=== PATIENT | female | born 1975 | race African-American/Black ===

== ENCOUNTER 2016-09-09 10:05 | Emergency (ER) | payer OTHER ==
[~2016-09-09] VITALS: Ht 167.6 cm; Wt 68.0 kg
[2016-09-09 10:15] VITALS: BP 137/97
--- NOTE | 2016-09-09 10:36 | PHYS DOC ---
Past Medical History Past Medical History: Hypertension Past Surgical History: Additional Past Surgical Histo: rt hand, rotator cuff repair Alcohol Use: Occasionally Drug Use: Marijuana Adult General Chief Complaint Chief Complaint: UPPER EXTREMITY PAIN HPI HPI Patient is a 41 year old female comes emergency Department today with complaint of ongoing cough for the past 2-3 days with left anterior chest wall pain secondary to coughing as well as left shoulder pain for approximately a day and a half. Patient denies any fevers or chills. She reports no history of heart or lung disease. She is a smoker. Patient is right-hand dominant. She reports having a left rotator cuff surgery more than 5 years ago. She does perform repetitive movements at work, but denies heavy lifting or overhead lifting. Patient states that she went to work today and began feeling worse so she decided to come to the emergency department for evaluation. Review of Systems Review of Systems Constitutional: Denies fever or chills [] Eyes: Denies change in visual acuity, redness, or eye pain [] HENT: Denies nasal congestion or sore throat [] Respiratory: Denies cough or shortness of breath [] Cardiovascular: No additional information not addressed in HPI [] GI: Denies abdominal pain, nausea, vomiting, bloody stools or diarrhea [] : Denies dysuria or hematuria [] Musculoskeletal: Denies back pain or joint pain [] Integument: Denies rash or skin lesions [] Neurologic: Denies headache, focal weakness or sensory changes [] Endocrine: Denies polyuria or polydipsia [] Current Medications Current Medications Current Medications Medications (Trade) Dose Ordered Sig/[facility] Start Time Stop Time Status Last Admin Dose Admin Acetaminophen/ Hydrocodone Bitart (Lortab 5/325) 1 tab 1X ONCE 09/09/16 10:45 09/09/16 10:46 DC 09/09/16 11:03 1 TAB Allergies Allergies Allergies Coded Allergies Type Severity Reaction Last Updated Verified No Known Drug Allergies 09/11/13 No Physical Exam Physical Exam Constitutional: Well developed, well nourished, no acute distress, non-toxic appearance. Patient's physiologic vital signs are normal. She is sitting in a high semi-Fowlers position in no acute distress. HENT: Normocephalic, atraumatic, bilateral external ears normal, oropharynx moist, no oral exudates, nose normal. [] Eyes: PERRLA, EOMI, conjunctiva normal, no discharge. [] Neck: Normal range of motion, no tenderness, supple, no stridor. [] Cardiovascular:Heart rate regular rhythm, no murmur [] Lungs & Thorax: There is no respiratory distress or respiratory fatigue. There is no posturing or sensory muscle use. Lungs are clear to auscultation bilaterally. There is tenderness to palpation along the left costal sternal border without palpable defect, deformity, instability or crepitus. She demonstrates full chest excursion with inspiration. Abdomen: Bowel sounds normal, soft, no tenderness, no masses, no pulsatile masses. [] Skin: Warm, dry, no erythema, no rash. [] Back: No tenderness, no CVA tenderness. [] Extremities: Left shoulder is normal in appearance. Patient essentially has dubon- tenderness to her left shoulder without palpable defect, deformity or spasm. She demonstrates limited range of motion secondary to pain. Left upper extremity is neurovascularly intact, is warm and dry without dystrophic changes. Neurologic: Alert and oriented X 3, normal motor function, normal sensory function, no focal deficits noted. [] Psychologic: Affect normal, judgement normal, mood normal. [] Current Patient Data Vital Signs Vital Signs Date Time Temp Pulse Resp B/P Pulse Ox O2 Delivery O2 Flow Rate FiO2 09/09/16 10:15 98.2 85 18 137/97 99 Room Air 98.2 EKG EKG [] Radiology/Procedures Radiology/Procedures [facility] [address] [place] [address] IMAGING REPORT Signed PATIENT: KATHERINE CALDERÓN ACCOUNT: [id number] : 1975 LOCATION: ER AGE: 41 SEX: F EXAM STATUS: REG ER ORD. PHYSICIAN: SHEA GAMBOA REASON: LEFT chest wall pain and shoulder pain PROCEDURE: SHOULDER 2+V LEFT Indication shoulder pain. Internally and externally rotated views of the left shoulder as well as a Y view were obtained. No acute bony finding is seen. There are moderate glenohumeral degenerative changes. DICTATED and SIGNED BY: RONNIE RUIZ MD DATE: 09/09/16 1146 [facility] [address] [place] [address] IMAGING REPORT Signed PATIENT: KATHERINE CALDERÓN ACCOUNT: [id number] : 1975 LOCATION: ER AGE: 41 SEX: F EXAM STATUS: REG ER ORD. PHYSICIAN: SHEA GAMBOA REASON: LEFT chest wall pain and shoulder pain PROCEDURE: CHEST PA & LATERAL Indication shoulder and chest pain. PA and lateral views of the chest were obtained. Comparison is made to an examination 03/05/2012. The heart, pulmonary vessels and mediastinum appear normal. The lungs are clear. An acute finding in the chest is not apparent. There are some degenerative changes about the left shoulder. IMPRESSION: No acute finding apparent in the chest DICTATED and SIGNED BY: RONNIE RUIZ MD DATE: 09/09/16 0847 Course & Med Decision Making Course & Med Decision Making Pertinent Labs and Imaging studies reviewed. (See chart for details) [] Dragon Disclaimer Dragon Disclaimer This electronic medical record was generated, in whole or in part, using a voice recognition dictation system. Departure Departure Impression: Primary Impression: Costochondritis, acute Additional Impression: Osteoarthritis Disposition: 01 HOME, SELF-CARE Condition: GOOD Referrals: NO PCP (PCP) Patient Instructions: Costochondritis, [id number], Osteoarthritis Additional Instructions: 1. The x-rays of your chest today are normal. The x-rays of your left shoulder show moderate arthritic changes (arthritis). 2. You will need to follow-up with both a primary care doctor and orthopedic doctor. A pamphlet is provided to you for both. 3. Take the medication as prescribed. 4. Review the discharge instructions provided for self-care and reasons to return to the emergency department. Scripts D-Methorphan Hb/Prometh Hcl (Promethazine-Dm Syrup)118 Ml Syrup5 Ml PO PRN Q6HRS COUGH #120 ML Prov:SHEA GAMBOA 09/09/16 Hydrocodone/Apap 5-325 ([place] 5-325 Tablet)1 Each Tablet1 Tab PO PRN Q6HRS PRN PAIN #15 TAB Prov:SHEA GAMBOA 09/09/16 Problem Qualifiers Additional Impression: Osteoarthritis Osteoarthritis location: shoulder Osteoarthritis type: primary Laterality: left Qualified Code: M19.012 - Primary osteoarthritis, left shoulder SHEA GAMBOA September 09, 2016 10:36
[2016-09-09] MEDS ORDERED: HYDROCODONE/APAP 5/325MG TABLET. PO ONE (10:45)
--- NOTE | 2016-09-09 10:49 | RAD ---
Indication shoulder pain. Internally and externally rotated views of the left shoulder as well as a Y view were obtained. No acute bony finding is seen. There are moderate glenohumeral degenerative changes.
--- NOTE | 2016-09-09 10:51 | RAD ---
Indication shoulder and chest pain. PA and lateral views of the chest were obtained. Comparison is made to an examination 03/05/2012. The heart, pulmonary vessels and mediastinum appear normal. The lungs are clear. An acute finding in the chest is not apparent. There are some degenerative changes about the left shoulder. IMPRESSION: No acute finding apparent in the chest
[2016-09-09] MEDS ORDERED: HYDR-971 PO (11:14)
[2016-09-09] MEDS ORDERED: D-ME118S2 PO (11:14)
== END 2016-09-09 11:22 | disposition home or self-care (01) ==
LOC: ER 10:05
DX: M94.0 Chondrocostal junction syndrome [Tietze] (principal); M19.012 Primary osteoarthritis, left shoulder; I10 Essential (primary) hypertension; F12.10 Cannabis abuse, uncomplicated
CPT/HCPCS: 71020; 73030; 81025; 99284

== ENCOUNTER 2016-11-17 22:18 | Emergency (ER) | payer OTHER ==
[~2016-11-17] VITALS: Ht 172.7 cm; Wt 78.0 kg
[~2016-11-17 22:18] MED LIST: D-ME118S2 PO; HYDR-971 PO
--- NOTE | 2016-11-17 22:55 | PHYS DOC ---
Past Medical History Past Medical History: Hypertension Past Surgical History: Additional Past Surgical Histo: rt hand, rotator cuff repair Alcohol Use: Occasionally Drug Use: None Adult General Chief Complaint Chief Complaint: MECHANICAL FALL HPI HPI Patient is a 41 year old female who presents with right ankle and foot pain after being chased by a dog she has pain with any bearing of weight but was able to run home prior to coming up here. Denies prior history of foot or ankle trauma. No dog bite. Pain is moderately severe. Incidentally she's . No other trauma. Review of Systems Review of Systems Constitutional: Denies fever or chills [] Eyes: Denies change in visual acuity, redness, or eye pain [] HENT: Denies nasal congestion or sore throat [] Respiratory: Denies cough or shortness of breath [] Cardiovascular: No additional information not addressed in HPI [] GI: Denies abdominal pain, nausea, vomiting, bloody stools or diarrhea [] : Denies dysuria or hematuria [] Musculoskeletal: Denies back pain or joint pain except for right ankle and foot [] Integument: Denies rash or skin lesions [] Neurologic: Denies headache, focal weakness or sensory changes [] Endocrine: Denies polyuria or polydipsia [] All systems negative except as presented in history present illness Allergies Allergies Allergies Coded Allergies Type Severity Reaction Last Updated Verified No Known Drug Allergies 09/11/13 No Physical Exam Physical Exam Constitutional: Well developed, well nourished, no acute distress, non-toxic appearance. [] HENT: Normocephalic, atraumatic, bilateral external ears normal, oropharynx moist, no oral exudates, nose normal. [] Eyes: PERRLA, EOMI, conjunctiva normal, no discharge. [] Neck: Normal range of motion, no tenderness, supple, no stridor. [] Cardiovascular:Heart rate regular rhythm, no murmur [] Lungs & Thorax: Bilateral breath sounds clear to auscultation [] Abdomen: Bowel sounds normal, soft, no tenderness, no masses, no pulsatile masses. [] Skin: Warm, dry, no erythema, no rash. [] Back: No tenderness, no CVA tenderness. [] Extremities: No tenderness, no cyanosis, no clubbing, ROM intact, no edema, except for tenderness to the lateral and medial malleolus and little bit on the dorsum of the foot but no soft tissue swelling or bruising; #2 plus pulses in the foot and ankle tendon functions intact. No tenderness to palpation of the knee or proximal fibula [] Neurologic: Alert and oriented X 3, normal motor function, normal sensory function, no focal deficits noted. [] Psychologic: Affect normal, judgement normal, mood normal. [] Current Patient Data Vital Signs Vital Signs Date Time Temp Pulse Resp B/P (MAP) Pulse Ox O2 Delivery O2 Flow Rate FiO2 11/17/16 22:30 98.0 100 18 119/78 (92) 99 Room Air 98.0 EKG EKG [] Radiology/Procedures Radiology/Procedures Right ankle and foot [x-ray: No evidence of fracture or dislocation my interpretation] Course & Med Decision Making Course & Med Decision Making Pertinent Labs and Imaging studies reviewed. (See chart for details) X-ray negative, supportive care, weight-bear as tolerated. The patient thinks she is about 8 weeks so recommended Tylenol only for pain. Recommend Brayan wrap and postop shoe for comfort [] Dragon Disclaimer Dragon Disclaimer This electronic medical record was generated, in whole or in part, using a voice recognition dictation system. Departure Departure Impression: Primary Impression: Strain of right ankle and foot Disposition: 01 HOME, SELF-CARE Condition: STABLE Referrals: NO PCP (PCP) Patient Instructions: Ankle Sprain, [id number], Foot Sprain-Brief LORI EPPS MD Nov 17, 2016 22:54
[2016-11-17] MEDS ORDERED: TRAM-48 PO (23:17)
[2016-11-17 23:46] VITALS: BP 116/72
--- NOTE | 2016-11-18 07:53 | RAD ---
Right ankle, 3 views, 11/17/2016: History: Fall, pain No fracture or dislocation is identified. There is mild subcutaneous edema. IMPRESSION: No acute bony abnormality is detected. Right foot, 3 views, 11/17/2016: No fracture or dislocation is identified. There is moderate diffuse subcutaneous edema about the foot.
== END 2016-11-17 23:48 | disposition home or self-care (01) ==
LOC: ER 22:18
DX: S96.911A Strain of unspecified muscle and tendon at ankle and foot level, right foot, initial encounter (principal); I10 Essential (primary) hypertension; X58.XXXA Exposure to other specified factors, initial encounter; Y93.02 Activity, running; Y92.89 Other specified places as the place of occurrence of the external cause; Y99.8 Other external cause status
CPT/HCPCS: 73610; 73630; 99284

== ENCOUNTER 2018-01-23 06:24 | Emergency (ER) | payer OTHER ==
[~2018-01-23] VITALS: Ht 172.7 cm; Wt 72.6 kg
[~2018-01-23 06:24] MED LIST changes: +TRAM-48 PO
[2018-01-23 06:25] VITALS: BP 135/88
[2018-01-23] MEDS ORDERED: KETOROLAC 60 MG/2 ML INJ. IM ONE (07:00)
--- NOTE | 2018-01-23 07:19 | RAD ---
EXAM: Lumbar spine, 3 views. HISTORY: Pain. COMPARISON: None. FINDINGS: 3 views of the lumbar spine are obtained. There is no listhesis. The vertebral bodies are normal in height. There is degenerative endplate remodeling and facet arthropathy at L5-S1. IMPRESSION: Degenerative change at L5-S1. No acute osseous finding. Electronically signed by: Angie Pitts MD (01/23/2018 7:15 AM) [facility]
--- NOTE | 2018-01-23 07:38 | PHYS DOC ---
Past Medical History Past Medical History: Hypertension Past Surgical History: Additional Past Surgical Histo: rt hand, rotator cuff repair Alcohol Use: Occasionally Drug Use: None Adult General Chief Complaint Chief Complaint: BACK PAIN OR INJURY HPI HPI Patient is a 42 year old female who brought in by EMS because of back pain. Patient waning of left lower back pain as a constant pain that gradually started 2 days ago and getting worse. Patient complaining of increasing pain with activity and movement and rated her pain 9. Patient denies radiation of pain, focal neuro deficit, urine and bowel incontinence, urinary symptoms, history of injury or the same back pain. Patient states she applied icy hot and had heat pad and took [id number] ibuprofen without improvement of her pain. Review of Systems Review of Systems Constitutional: Denies fever or chills [] Eyes: Denies change in visual acuity, redness, or eye pain [] HENT: Denies nasal congestion or sore throat [] Respiratory: Denies cough or shortness of breath [] Cardiovascular: No additional information not addressed in HPI [] GI: Denies abdominal pain, nausea, vomiting, bloody stools or diarrhea [] : Denies dysuria or hematuria [] Musculoskeletal: Reports back pain, denies joint pain [] Integument: Denies rash or skin lesions [] Neurologic: Denies headache, focal weakness or sensory changes [] Endocrine: Denies polyuria or polydipsia [] All other systems were reviewed and found to be within normal limits, except as documented in this note. Current Medications Current Medications Current Medications Medications (Trade) Dose Ordered Sig/[facility] Start Time Stop Time Status Last Admin Dose Admin Acetaminophen/ Hydrocodone Bitart (Lortab 5/325) 1 tab 1X ONCE 01/23/18 07:45 01/23/18 07:46 DC 01/23/18 07:40 1 TAB Cyclobenzaprine HCl (Flexeril) 10 mg 1X ONCE 01/23/18 07:45 01/23/18 07:46 DC 01/23/18 07:40 10 MG Ketorolac Tromethamine (Toradol Im) 60 mg 1X ONCE 01/23/18 07:00 01/23/18 07:01 DC 01/23/18 06:53 60 MG Allergies Allergies Allergies Coded Allergies Type Severity Reaction Last Updated Verified No Known Drug Allergies 09/11/13 No Physical Exam Physical Exam Constitutional: Well developed, well nourished, moderate distress, non-toxic appearance. [] HENT: Normocephalic, atraumatic Eyes: PERRLA, EOMI, conjunctiva normal, no discharge. [] Neck: Normal range of motion, no tenderness, supple, no stridor. [] Cardiovascular:Heart rate regular rhythm, no murmur [] Lungs & Thorax: Bilateral breath sounds clear to auscultation [] Abdomen: Bowel sounds normal, soft, no tenderness, no masses, no pulsatile masses. [] Skin: Warm, dry, no erythema, no rash. [] Back: No midline tenderness, left paraspinal muscle tenderness, no CVA tenderness. [] Extremities: No tenderness, no cyanosis, no clubbing, ROM intact, no edema. [] Neurologic: Alert and oriented X 3, normal motor function, normal sensory function, no focal deficits noted. [] Psychologic: Affect anxious, judgement normal, mood normal. [] Current Patient Data Vital Signs Vital Signs Date Time Temp Pulse Resp B/P (MAP) Pulse Ox O2 Delivery O2 Flow Rate FiO2 01/23/18 06:25 98.6 93 18 135/88 (104) 99 Room Air 98.6 Lab Values Laboratory Tests Test 01/23/18 07:35 Urine Collection Type Void Urine Color Yellow Urine Clarity Clear Urine pH 6.0 Urine Specific [place] 1.010 Urine Protein Negative mg/dL (NEG-TRACE) Urine Glucose (UA) Negative mg/dL (NEG) Urine Ketones (Stick) Negative mg/dL (NEG) Urine Blood Negative (NEG) Urine Nitrite Positive (NEG) Urine Bilirubin Negative (NEG) Urine Urobilinogen Dipstick 0.2 mg/dL (0.2 mg/dL) Urine Leukocyte Esterase Trace (NEG) Urine RBC Occ /HPF (0-2) Urine WBC 5-10 /HPF (0-4) Urine Squamous Epithelial Cells Mod /LPF Urine Bacteria Many /HPF (0-FEW) EKG EKG [] Radiology/Procedures Radiology/Procedures [facility] [address] [place] [address] IMAGING REPORT Signed PATIENT: KATHERINE CALDERÓN ACCOUNT: [id number] : 1975 LOCATION: ER AGE: 42 SEX: F EXAM STATUS: REG ER ORD. PHYSICIAN: DAVID DECKER MD REASON: pain, no injury PROCEDURE: LUMBAR SPINE 2-3V EXAM: Lumbar spine, 3 views. HISTORY: Pain. COMPARISON: None. FINDINGS: 3 views of the lumbar spine are obtained. There is no listhesis. The vertebral bodies are normal in height. There is degenerative endplate remodeling and facet arthropathy at L5-S1. IMPRESSION: Degenerative change at L5-S1. No acute osseous finding. Electronically signed by: Angie Pitts MD (01/23/2018 7:15 AM) [facility] DICTATED and SIGNED BY: ANGIE PITTS MD DATE: 01/23/18713 Course & Med Decision Making Course & Med Decision Making Pertinent Labs and Imaging studies reviewed. (See chart for details) Evaluation of patient in ER showed 42-year-old female patient with complaining of low back pain for 2 days without injury. Patient had muscle spasm and painful range of motion. Patient had history of hypertension with blood pressure of 160 over 90s and states she of her blood pressure because she did dizziness. Patient instructed to record her blood pressure and follow up with her primary care physician. UA showed UTI and prescription for Cipro was given. Patient treated with Toradol, [place] and Flexeril ER and felt better and ambulated without help. She instructed to apply ice and not using heat on her back. Dragon Disclaimer Dragon Disclaimer This electronic medical record was generated, in whole or in part, using a voice recognition dictation system. Departure Departure Impression: Primary Impression: Lumbosacral strain Additional Impressions: Urinary tract infection Tobacco abuse Tobacco abuse counseling Uncontrolled hypertension Disposition: HOME, SELF-CARE (at 0813) Condition: IMPROVED Referrals: NO PCP (PCP) Patient Instructions: Form - Blood Pressure Record Sheet, Hypertension, Lumbosacral Strain, Smoking Cessation, Tips For Success, Urinary Tract Infection Additional Instructions: Drink plenty of liquids Follow-up with your primary care physician in 3-5 days Return to ER if not getting better Apply ice on your back Scripts Ciprofloxacin Hcl (CIPRO) 250 Mg Tablet 1 TAB PO BID, #6 TAB Prov: DAVID DECKER MD 01/23/18 Tramadol Hcl (ULTRAM) 50 Mg Tablet 50 MG PO Q6HRS PRN for PAIN, #20 TAB 0 Refills Prov: DAVID DECKER MD 01/23/18 Cyclobenzaprine Hcl (CYCLOBENZAPRINE HCL) 10 Mg Tablet 1 TAB PO TID, #30 TAB Prov: DAVID DECKER MD 01/23/18 Problem Qualifiers DAVID DECKER MD Jan 23, 2018 07:38
[2018-01-23] MEDS ORDERED: HYDROcodone/APAP 5/325MG 1 TAB TABLET PO ONE (07:45)
[2018-01-23] MEDS ORDERED: CYCLOBENZAPRINE 10 MG TABLET. PO ONE (07:45)
[2018-01-23 07:49] LABS: BILIRUBIN,URINE NEGATIVE (NEG); CLARITY,URINE CLEAR; COLOR,URINE YELLOW; NITRITE,URINE POSITIVE (NEG); PROTEIN,URINE NEGATIVE (NEG-TRACE); UROBILINOGEN,URINE 0.2 mg/dL (0.2 mg/dL)
[2018-01-23 07:58] LABS: BACTERIA,URINE MANY /HPF (0-FEW); SQUAMOUS EPITHELIAL CELL,UR MOD /LPF
[2018-01-23 07:59] LABS: RBC,URINE OCC /HPF (0-2)
[2018-01-23] MEDS ORDERED: CIPR250T30 PO ×2 (08:19→08:23)
[2018-01-23] MEDS ORDERED: TRAM-48 PO (08:19)
[2018-01-23] MEDS ORDERED: CYCL10TA2 PO (08:19)
--- NOTE | 2018-01-28 17:14 | VNOTE ---
CALL BACK NOTE CALL BACK Microbiology 01/23/18 Urine Culture - Final, Complete 01/23/18 Urine Culture Result 1 (NHAN) - Final, Complete 01/23/18 Antimicrobic Susceptibility - Final, Complete Urine culture shows patient is resistant to Cipro which she was put on for UTI. Called patient, left ANABELLA ALVAREZ APRN Jan 28, 2018 17:13
== END 2018-01-23 08:30 | disposition home or self-care (01) ==
LOC: ER 06:24
DX: S39.012A Strain of muscle, fascia and tendon of lower back, initial encounter (principal); I10 Essential (primary) hypertension; Z72.0 Tobacco use; Z71.6 Tobacco abuse counseling; M46.97 Unspecified inflammatory spondylopathy, lumbosacral region; X50.9XXA Other and unspecified overexertion or strenuous movements or postures, initial encounter; Y93.89 Activity, other specified; Y92.89 Other specified places as the place of occurrence of the external cause; Y99.8 Other external cause status
CPT/HCPCS: 72100; 81001; 87086; 87186; 96372; 99285; J1885